=== PATIENT | female | born 1975 | race Caucasian/White ===

== ENCOUNTER 2019-05-08 18:54 | Emergency (ER) | payer MEDICAID ==
[2019-05-08] MEDS: METHOCARBAMOL 750 MG TAB PO (20:33)
[2019-05-08] MEDS: IBUPROFEN 600 MG TAB PO (20:33)
== END 2019-05-08 20:50 | disposition home or self-care (01) ==
LOC: FTE 18:54
DX: M54.2 Cervicalgia (principal)
CPT/HCPCS: 81025; 99283